=== PATIENT | female | born 1965 | race Caucasian/White ===

== ENCOUNTER 2019-09-23 22:40 | Emergency (ER) | payer SELFPAY ==
--- NOTE | 2019-09-24 00:09 | PDOC ---
Documentation entered by Edie Medel SCRIBE, acting as scribe for Airam Perez MD. Airam Perez MD: This documentation has been prepared by the Gianfranco vega Xhesika, SCRIBE, under my direction and personally reviewed by me in its entirety. I confirm that the documentation accurately reflects all work, treatment, procedures, and medical decision making performed by me. History of Present Illness - General Chief Complaint: Pain, Acute Stated Complaint: PAIN BEHIND LEFT KNEE Time Seen by Provider: 09/23/19 22:45 History Source: Patient Exam Limitations: No Limitations - History of Present Illness Initial Comments: 09/23/19 22:51 The patient is a 53 y/o female with no PMH who presents to the ED for pain behind her L knee. The patient states she just came to visit from [facility]. Pt reports family history of blood clots. Pt denies any chest pain or SOB. PAST MEDICAL HISTORY: no significant history PAST SURGICAL HISTORY: no significant history FAMILY HISTORY: no pertinent history SOCIAL HISTORY: Pt lives with family and is employed. MEDICATIONS: reviewed ALLERGIES: As per nursing notes Review of Systems - Review of Systems Able to Perform ROS?: Yes Comments:: 09/23/19 22:53 General: No fevers or chills, no weakness, no weight loss HEENT: No change in vision. No sore throat,. No ear pain CardioVascular: No chest pain or shortness of breath Respiratory:No cough, or wheezing. Gastrointestinal: no nausea, vomiting, diarrhea or constipation, No rectal bleeding Genitourinary: No dysuria, hematuria, or frequency Musculoskeletal: +pain behind her L knee Neurologic: No headache, vertigo, dizziness or loss of consciousness Psychiatric: nor depression Skin: No rashes or easy bruising Endocrine: no increased thirst or abnormal weight change Allergic: no skin or latex allergy All other systems reviewed and normal *Physical Exam - Physical Exam 09/23/19 22:53 GENERAL: The patient is awake, alert, and fully oriented, in no acute distress. HEAD: Normal with no signs of trauma. EYES: Pupils equal, round and reactive to light, extraocular movements intact, sclera anicteric, conjunctiva clear. EXTREMITIES: Normal range of motion, no edema. NEUROLOGICAL: Normal speech, normal gait. PSYCH: Normal mood, normal affect. SKIN: Warm, Dry, normal turgor, no rashes or lesions noted. ED Treatment Course - RADIOLOGY Radiology Studies Ordered: Category Date Time Status DUPLEX VASCUL US-1 LEG [US] Stat Ultrasound 09/23/19 22:49 Ordered Discharge - Discharge Information Problems reviewed: Yes Clinical Impression/Diagnosis: Left knee pain Qualifiers: Chronicity: acute Qualified Code(s): M25.562 - Pain in left knee Condition: Stable - Admission Yes - Follow up/Referral - Patient Discharge Instructions Additional Instructions: Your ultrasound was negative for any blood clots in your leg. Return to the emergency department immediately with ANY new, persistent or worsening symptoms. Continue any medications as previously prescribed by your physician. You should follow up with your primary doctor as soon as possible regarding today's emergency department visit. . Please make sure your doctor reviews the results of your emergency evaluation. Thank you for coming to the Emergency Department today for your care. It was a pleasure to see you today. Please note that your evaluation is INCOMPLETE until you follow-up with your doctor. - Post Discharge Activity
[2019-09-24] MEDS ORDERED: IBUPROFEN 400 MG TABLET (FP) PO ONE ×2 (00:13→00:14)
== END 2019-09-24 00:19 | disposition home or self-care (01) ==
LOC: FER 22:40
DX: M25.562 Pain in left knee (principal)
CPT/HCPCS: 93971-TC; 99284-25